=== PATIENT | female | born 1945 | race Caucasian/White ===

== ENCOUNTER 2021-04-26 08:07 | Outpatient (CLI) | payer OTHER | END 2021-04-26 08:17 | disposition home or self-care (01) | LOC: RX STUDY 08:07 | PROVIDERS: ATTEND Otolaryngology Plastic Surgery within the Head & Neck | DX: T18.8XXA Foreign body in other parts of alimentary tract, initial encounter (principal); K46.9 Unspecified abdominal hernia without obstruction or gangrene ==